=== PATIENT | female | born 1985 | race Caucasian/White ===

== ENCOUNTER 2016-12-20 12:13 | Emergency (ER) | payer OTHER ==
[~2016-12-20] VITALS: Ht 172.7 cm; Wt 80.3 kg
--- OUTSIDE RECORDS SUMMARY | ~2016-12-20 | XMS | Clinical Summary ---
Demographics + + + | Address | [address] | | | [place] [address] | + + + | Home Phone | | + + + | Preferred Language | Unknown | + + + | Marital Status | Single | + + + | Religion Affiliation | Unknown | + + + | Race | White | + + + | Ethnic Group | Not or | + + + Author + + + | Author | [facility] | + + + | Organization | [facility] | + + + | Address | Unknown | + + + | Phone | Unavailable | + + + Support + + +---------+ + | Name | Relationship | Address | Phone | + + +---------+ + | KAVYA JENNI | ECON | Unknown | | + + +---------+ + Care Team Providers + +------+-------+ | Care Network Engineering Advisor Name | Role | Phone | + +------+-------+ | Refugio Bauer MD | PP | tel | + +------+-------+ Source Comments YINA is fully live on both [facility] and [facility] Allergies + + + + + + | Active Allergy | Reactions | Severity | Noted | Comments | | | | | Date | | + + + + + + | Amoxicillin-Pot | Rash | | 01/04/20 | | | Clavulanate | | | 16 | | + + + + + + | Meperidine (Pf) | Dyspnea | | 01/04/20 | | | | | | 16 | | + + + + + + Current Medications + + +---------+---------+------+------+-------+ | Prescription | Sig. | Disp. | Refills | Star | End | Statu | | | | | | t | Date | s | | | | | | Date | | | + + +---------+---------+------+------+-------+ | ESTRADIOL (ESTRACE | Take 5 mg by mouth. | | | | | Activ | | ORAL) | | | | | | e | + + +---------+---------+------+------+-------+ | OXYCODONE | Take 5-325 mg by | | | | | Activ | | HCL/ACETAMINOPHEN | mouth. | | | | | e | | (PERCOCET ORAL) | | | | | | | + + +---------+---------+------+------+-------+ | lidocaine 2 % | Apply to affected | 30 mL | 1 | 11/1 | | Activ | | mucous membrane gel | area once daily as | | | 8/20 | | e | | | needed. | | | 16 | | | + + +---------+---------+------+------+-------+ | oxyCODONE, | | | | 12/0 | | Activ | | immediate release, 5 | | | | 1/20 | | e | | mg oral tablet | | | | 16 | | | + + +---------+---------+------+------+-------+ | gabapentin 100 mg | Take 1 capsule by | 60 | 0 | 12/1 | | Activ | | oral capsule | mouth three times | capsule | | 2/20 | | e | | | daily. | | | 16 | | | + + +---------+---------+------+------+-------+ Active Problems Not on file Social History + +-------+ +--------+------+ | Tobacco Use | Types | Packs/Day | Years | Date | | | | | Used | | + +-------+ +--------+------+ | Never Smoker | | | | | + +-------+ +--------+------+ + + +---------+ + | Alcohol Use | Drinks/We | oz/Week | Comments | | | ek | | | + + +---------+ + | No | | | | + + +---------+ + + + + | Sex Assigned at | Date Recorded | | | | + + + | Not on file | | + + + Last Filed Vital Signs + + + + | Vital Sign | Reading | Time Taken | + + + + | Blood Pressure | 108/80 | 01/21/2016 3:04 PM PST | + + + + | Pulse | 87 | 01/21/2016 3:04 PM PST | + + + + | Temperature | 37.4 C (99.4 F) | 01/21/2016 3:04 PM PST | + + + + | Respiratory Rate | - | - | + + + + | Oxygen Saturation | 96% | 01/21/2016 3:04 PM PST | + + + + | Inhaled Oxygen | - | - | | Concentration | | | + + + + | Weight | 88.8 kg (195 lb 12.8 | 01/21/2016 3:04 PM PST | | | oz) | | + + + + | Height | 172.7 cm (5' 8") | 01/21/2016 3:04 PM PST | + + + + | Body Mass Index | 29.77 | 01/21/2016 3:04 PM PST | + + + + Plan of Treatment + + + + + | Health Maintenance | Due Date | Last Done | Comments | + + + + + | INFLUENZA VACCINE | | | | | (FLU SHOT) | 7 | | | + + + + + Results Not on filefrom Last 3 Months
[~2016-12-20 12:13] MED LIST: AMITRIPTYLINE H10 MG; AMITRIPTYLINE H50 MG PO; BACLOFEN20 MG PO; CHERATUSSIN AC118 ML PO; COMBIPATCH TD; CYCLOBENZAPRINE10 MG PO; DILAUDID2 MG PO; DOXYCYCLINE HY100 MG PO; ESTRACE0.5 MG PO; EXCEDRIN MIGRA1 EAC2 PO; GABAPENTIN100 MG PO; GOLYTELY SOLU4000 ML PO; HOMATROPAIRE5 ML OPTH; HYDROCODON-ACE1 EA10 PO; IBUPROFEN400 MG PO; IBUPROFEN800 MG PO; IMITREX25 MG IM; KEPPRA500 MG PO; LIDODERM700 MG TOP; MELOXICAM15 MG PO; MOTRIN600 MG PO; MULTI VITAMIN1 EACH PO; NAPROXEN500 MG PO; NORCO 10-325 T1 EACH PO; NORCO 5-325 TA1 EACH PO; NORETHINDRONE AC5 MG PO; PERCOCET 5-3251 EACH PO; SYEDA 28 TABLE1 EACH PO; TESSALON PERLE100 MG PO; TOPAMAX25 MG PO; TRAMADOL PO; TYLENOL WITH C1 EACH PO; ULTRAM50 MG PO; ZANAFLEX4 MG PO; ZOFRAN ODT4 MG PO; ZOFRAN4 MG PO; ZOLOFT25 MG
== END 2016-12-20 16:26 | disposition home or self-care (01) ==
LOC: ED 12:13
DX: G89.18 Other acute postprocedural pain (principal); R10.30 Lower abdominal pain, unspecified; Z88.1 Allergy status to other antibiotic agents; Z88.8 Allergy status to other drugs, medicaments and biological substances; Z90.49 Acquired absence of other specified parts of digestive tract; Z98.51 Tubal ligation status; Z87.891 Personal history of nicotine dependence
CPT/HCPCS: 74177; 80053; 81001; 85025; 96361; 96374; 96375; 99284; J1170; J2405; J7030; Q9967